=== PATIENT | male | born 1990 | race Caucasian/White ===

== ENCOUNTER 2018-10-29 12:13 | Emergency (ER) | payer SELFPAY ==
[2018-10-29] MEDS ORDERED: LIDOCAINE 0.5%/EPINEPHRINE INJ 50 ML VIAL INJ ONE (12:26)
[2018-10-29] MEDS ORDERED: DIPH/PERTUSS(ACELL)/TETANUS VAC/PF 0.5 ML SYR (>=10YO) IM ONE (12:26)
[2018-10-29] MEDS ORDERED: HYDROCODONE/ACETAMINOPHEN 7.5-325 MG TABLET PO ONE (12:26)
--- NOTE | 2018-10-29 13:45 | ER Document Report ---
ED Wound - General Chief Complaint: Laceration Stated Complaint: LEG LACERATION Time Seen by Provider: 10/29/18 12:22 Notes: Patient is an otherwise healthy 28-year-old male presents to the emergency department for a laceration to his right upper inner thigh. Patient states he was at a work site when there was a nail sticking out of a piece of wood that he accidentally was sliding down. States the nail caught him on the right upper inner thigh and he sustained a laceration. Patient states there was no break to the suarez at all or the nail itself. Patient is denying any numbness or tingling in any extremity, or decreased sensation in the right lower extremity. Past medical history: None Medications: None Allergies: None Patient is unsure of his last tetanus immunization TRAVEL OUTSIDE OF THE [place] IN LAST 30 DAYS: No - Related Data Allergies/Adverse Reactions: No Known Allergies Allergy (Unverified 10/29/18 12:16) Past Medical History - General Information source: Patient - Social History Smoking Status: Unknown if Ever Smoked Family History: Reviewed & Not Pertinent Patient has suicidal ideation: No Patient has homicidal ideation: No Renal/ Medical History: Denies: Hx Peritoneal Dialysis Review of Systems - Review of Systems Constitutional: No symptoms reported EENT: No symptoms reported Cardiovascular: No symptoms reported Respiratory: No symptoms reported Gastrointestinal: No symptoms reported Genitourinary: No symptoms reported Male Genitourinary: No symptoms reported Musculoskeletal: See HPI Skin: See HPI Hematologic/Lymphatic: No symptoms reported Neurological/Psychological: No symptoms reported Physical Exam - Notes Notes: GENERAL: Alert, interacts well. No acute distress. HEAD: Normocephalic, atraumatic. EYES: Pupils equal, round, and reactive to light. Extraocular movements intact. ENT: Oral mucosa moist, tongue midline. NECK: Full range of motion. Supple. Trachea midline. LUNGS: Clear to auscultation bilaterally, no wheezes, rales, or rhonchi. No respiratory distress. HEART: Regular rate and rhythm. No murmur ABDOMEN: Soft, non-tender. Non-distended. Bowel sounds present in all 4 quadrants. EXTREMITIES: Moves all 4 extremities spontaneously. No edema, normal radial and dorsalis pedis pulses bilaterally. No cyanosis. 5 out of 5 strength all 4 extremities. BACK: no cervical, thoracic, lumbar midline tenderness. No saddle anesthesia, normal distal neurovascular exam. NEUROLOGICAL: Alert and oriented x3. Normal speech. cranial nerves II through XII grossly intact PSYCH: Normal affect, normal mood. SKIN: Warm, dry, normal turgor. 10 cm linear laceration noted to the right upper inner thigh. It goes through the epidermis and subcu tissue does not passed through the fascia. Course - Re-evaluation Re-evalutation: 10/29/18 14:34 Patient's laceration was repaired, see procedure note. Patient tolerated procedure well no complications noted site dressed discussed signs of wound infection and return precautions. Patient stable for discharge. Procedures - Laceration/Wound Repair Thigh Wound length (cm): 10 Wound's Depth, Shape: Superficial, Linear Laceration pre-procedure: Sterile PPE donned, Betadine prep applied, Sterile drapes applied, Shur-Clens applied Anesthetic type: 1% Lidocaine w/epi Volume Anesthetic (mLs): 10 Wound explored: Clean Irrigated w/ Saline (mLs): 500 Wound Debrided: Minimal Wound Repaired With: Sutures Suture Size/Type: 4:0, Ethilon Number of Sutures: 15 Layer Closure?: Yes Deep Layer Suture Size/Type: 4:0 Number Deep Layer Sutures: 6 - vicryl Post-procedure wound care: Sterile dressing applied - We do not have 2% Post-procedure NV exam normal: Yes Complications: No Discharge - Discharge Clinical Impression: Laceration Condition: Stable Disposition: HOME, SELF-CARE Instructions: Antibiotic Ointment Protection ([facility]), Laceration Care ([facility]), Tetanus Immunization Given ([facility]), Soap Cleansing ([facility]) Additional Instructions: As we discussed you have been seen and treated in the emergency department for a laceration to your right upper thigh. Your sutures should be removed in the next 10-14 days. Please make sure you follow-up with your primary care provider, urgent care or return to the emergency room. Please also earlier return to the emergency room should you see any signs of infection around the wound. This would include but is not limited to redness, swelling, discharge, foul odor from the wound. Please also return to the emergency room should you have any other concerning symptoms. Forms: Return to Work
[2018-10-29 14:57] VITALS: BP 116/86
== END 2018-10-29 14:48 | disposition home or self-care (01) ==
LOC: ER 12:13
PROC: 0HQHXZZ Repair Right Upper Leg Skin, External Approach (ICD-10-PCS; principal; 2018-10-29)
DX: S71.111A Laceration without foreign body, right thigh, initial encounter (principal); W45.0XXA Nail entering through skin, initial encounter
CPT/HCPCS: 99282; 90471; 90715; 12034; J3490